=== PATIENT | female | born 1995 | race Caucasian/White ===

== ENCOUNTER 2016-12-05 04:23 | Emergency (ER) | payer OTHER ==
--- NOTE | 2016-12-05 06:44 | ED NURSING NOTES ---
Clinical Report - Nurses [facility] [address] [place] [address] 12/05/2016 4:25 Patient: OSITO DAY TRIAGE Triage time 0435. Acuity: LEVEL 3. Chief Complaint: ABDOMINAL PAIN, NAUSEA and VOMITING. FRANCOIS COMA SCORE: Francois Coma Scale: 15- eyes open spontaneously (4); best verbal response- oriented x 4 (5); best motor response- obeys commands (6). --04:39 Haley Hoff R.N. 04:35 12/05/16. BP: 124/69. HR: 113. RR: 20 (unlabored). O2 saturation: 97% on room air. Temp: 98.2 F (oral). Pain level now: 05/09. --04:39 Haley Hoff R.N. Weight: 77.1 kg stated. Height/Length: 63 inches Per Patient. BMI: 30.1. --04:34 Haley Hoff R.N. Medications None. --04:38 Haley Hoff R.N. Medication/allergy information source: the patient. --04:39 Haley Hoff R.N. Allergies No Known Drug Allergy. --04:38 Haley Hoff R.N. History Arrived by private vehicle. Historian: patient. Accompanied by family. Primary physician (none). ( pt c/o abdominal and vomiting since 9pm last night. pt states she's vomited 4 times.). The patient has had nausea, vomiting and abdominal pain. 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 PAST MEDICAL HX: Last normal menstrual period- Oct 22, 2016. Uses control pills. SOCIAL HX: Never smoker. No alcohol use or drug use. ABUSE ASSESSMENT: No report of abuse. FALL RISK ASSESSMENT: Fall risk assessment completed. No fall risk identified. NUTRITIONAL RISK ASSESSMENT: The nutritional risk assessment revealed no deficiencies. FUNCTIONAL ASSESSMENT: Functional assessment: no impairments noted. LEARNING NEEDS ASSESSMENT: The learning needs assessment revealed no barriers. SKIN INTEGRITY ASSESSMENT: Skin integrity risk assessment completed. No skin integrity risk identified. --04:39 Haley Hoff R.N. ADDITIONAL SURGERIES: Appendectomy. --04:38 Haley Hoff R.N. Interventions ID band on patient. To treatment room. --04:39 Haley Hoff R.N. PHYSICAL ASSESSMENT 04:45. Ambulatory to room. GENERAL / NEURO / PSYCH: Alert. Oriented X 4. Appears in pain. HEENT: Mucous membranes are dry. RESPIRATORY: Respirations not labored. Breath sounds within normal limits. CVS: Capillary refill less than 2 seconds. GI / : The patient has had nausea. SKIN: Skin is warm and dry. --05:55 Haley Hoff R.N. NURSING PROGRESS NOTES Patient gowned. Two patient identifiers checked. Call light placed in reach. Side rails up x 1. Bed placed in lowest position. Brakes of bed on. Patient ready for evaluation. --04:40 Haley Hoff R.N. 04:55 12/05/2016 Site #1 started via IV in the right antecubital space with an 20g angiocath, with aseptic technique and good blood return; one attempt. Blood drawn: rainbow set. Labeled in the presence of the patient and sent to the lab. Saline lock flushed with 10 mL saline. --04:55 Zonia Patton 05:05 12/05/2016 Started bag #1 1000 mL IV Fluids IV NS (Saline); at 999 mL/hr over 1 hour(s) via site #1 via IV pump. Allergies verified and confirmed 5 rights. IV patency established. IV site checked: no pain, redness, or swelling. IV flushed thoroughly pre- and post-medication administration. --05:10 Haley Hoff R.N. 05:05 12/05/2016 Zofran (Ondansetron HCl) IVP 4 mg given over 1 minute(s) via site #1. Allergies verified and confirmed 5 rights. IV patency established. IV site checked: no pain, redness, or swelling. IV flushed thoroughly pre- and post-medication administration. IVP given by RN. --05:11 Haley Hoff R.N. 05:30 pt resting, waiting for lab results. --06:15 Haley Hoff R.N. 06:06 12/05/2016 IV Fluids IV NS Discontinued: bag #1 completed. Total amount infused: 1000 ml mL. IV patency established. IV site checked: no pain, redness, or swelling. IV flushed thoroughly. --06:52 Haley Hoff R.N. DISPOSITION / DISCHARGE Departure time: 650. Condition at departure: improved. No learning barriers present. Discharge instructions provided and reviewed with the patient. Reviewed medication(s). Prescription(s) given to the patient (Shannonfran). Patient verbalized understanding. Written instructions provided in Norwegian. The patient was discharged by the physician. She was discharged home and accompanied by parent. She left the Emergency Department ambulatory and via private vehicle. Parent driving. Medication list reviewed and validated with the patient. --06:52 Haley Hoff R.N. 06:50 12/05/16. BP: 118/54. HR: 95. RR: 18 (unlabored). O2 saturation: 99% on room air. Temp: 98 F (oral). Pain level now: 03/09. --06:52 Haley Hoff R.N. 06:51 12/05/2016 Site #1 removed upon discharge. --06:53 Haley Hoff R.N. Locked/Released at 12/10/2016 5:02 by Haley Hoff R.N.
--- NOTE | 2016-12-05 06:44 | ED ORDER SUMMARY ---
..... Patient: OSITO DAY OrderSheet [facility] VisitID: [id number] [place] [address] 21y, F Registration Date/Time: 12/05/2016 ORDER SHEET Weight: 77.1 kg (stated) Allergies: No Known Drug Allergy GENERAL ORDERS: CBC w Diff Urgent (05:12/05/2016 Lorenzo GOODRICH) (Ack 5:01 LMuller) (6:49 HSoule) CMP Urgent (05:12/05/2016 Lorenzo GOODRICH) (Ack 5:01 LMuller) (6:49 HSoule) Lipase Urgent (:12/05/2016 Lorenzo GOODRICH) (Ack 5:01 LMuller) (6:49 HSoule) Amylase Urgent (05:12/05/2016 Lorenzo GOODRICH) (Ack 5:01 LMuller) (6:49 HSoule) Urine Urgent (05:12/05/2016 Lorenzo GOODRICH) (Ack 5:01 LMuller) (6:49 HSoule) Urine Drug Screen Urgent (05:12/05/2016 Lorenzo GOODRICH) (Ack 5:01 LMuller) (6:49 HSoule) UA-Culture if indicated Urgent (:12/05/2016 Lorenzo GOODRICH) (Ack 5:01 LMuller) (6:49 HSoule) MEDICATION ORDERS: IV FLUIDS: IV NS : initial bolus 1000 mL (1000 mL/hr), then 250 mL/hr for 4h (NOW); Routine (04:59 12/05/2016 Lorenzo GOODRICH) (Ack 5:00 HKone R.N.) (5:10 HKone R.N.) Zofran IV 4 mg (NOW) (04:59 12/05/2016 Lorenzo GOODRICH) (Ack 5:00 HKone R.N.) (5:11 HKone R.N.) ORDER SHEET NOTES: [Electronically signed by Larry Gomez MD (13:38 12/07/2016)] [Electronically signed by Haley Hoff R.N. (05:12/10/2016)] [Electronically locked/signed by Haley Hoff R.N. (05:12/10/2016)]
--- NOTE | 2016-12-05 06:44 | ED ORDER SUMMARY ---
..... Patient: OSITO DAY OrderSheet [facility] VisitID: [id number] [place] [address] 21y, F Registration Date/Time: 12/05/2016 ORDER SHEET Weight: 77.1 kg (stated) Allergies: No Known Drug Allergy GENERAL ORDERS: CBC w Diff Urgent (05:12/05/2016 Lorenzo GOODRICH) (Ack 5:01 LMuller) (6:49 HSoule) CMP Urgent (05:12/05/2016 Lorenzo GOODRICH) (Ack 5:01 LMuller) (6:49 HSoule) Lipase Urgent (:12/05/2016 Lorenzo GOODRICH) (Ack 5:01 LMuller) (6:49 HSoule) Amylase Urgent (05:12/05/2016 Lorenzo GOODRICH) (Ack 5:01 LMuller) (6:49 HSoule) Urine Urgent (05:12/05/2016 Lorenzo GOODRICH) (Ack 5:01 LMuller) (6:49 HSoule) Urine Drug Screen Urgent (05:12/05/2016 Lorenzo GOODRICH) (Ack 5:01 LMuller) (6:49 HSoule) UA-Culture if indicated Urgent (:12/05/2016 Lorenzo GOODRICH) (Ack 5:01 LMuller) (6:49 HSoule) MEDICATION ORDERS: IV FLUIDS: IV NS : initial bolus 1000 mL (1000 mL/hr), then 250 mL/hr for 4h (NOW); Routine (04:59 12/05/2016 Lorenzo GOODRICH) (Ack 5:00 HKone R.N.) (5:10 HKone R.N.) Zofran IV 4 mg (NOW) (04:59 12/05/2016 Lorenzo GOODRICH) (Ack 5:00 HKone R.N.) (5:11 HKone R.N.) ORDER SHEET NOTES: [Electronically signed by Larry Gomez MD (13:38 12/07/2016)] [Electronically signed by Haley Hoff R.N. (05:12/10/2016)] [Electronically locked/signed by Haley Hoff R.N. (05:12/10/2016)]
--- NOTE | 2016-12-05 06:44 | ED CLINICAL REPORT ---
Clinical Report - Physicians/Mid Levels [facility] [address] [place] [address] 12/05/2016 4:25 Patient: OSITO DAY Time Seen: 04:52 Dec 05 2016. Arrived- By private vehicle. Historian- patient. CPT: ER phys charges level 4 (#[id number]). HISTORY OF PRESENT ILLNESS Chief Complaint: ABDOMINAL PAIN and VOMITING and NAUSEA. At its maximum, severity described as moderate. When seen in the E.D., severity described as moderate. Modifying factors- worsened by movement. Relieved by rest. It is described as "pain" and cramping and it is described as located in the upper abdomen. 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 and is still present. The patient has had nausea and vomiting. Similar symptoms previously: None. Recent medical care: Not recently seen/assessed. REVIEW OF SYSTEMS No constipation, black stools, hematemesis, difficulty with urination or pain with urination. No urinary frequency, fever, sore throat, chest pain or difficulty breathing. No cough, joint pain, skin rash, chills or back pain. Denies current . All systems otherwise negative, except as recorded above. PAST HISTORY Appendectomy. Medications: None. Allergies: No Known Drug Allergy. SOCIAL HISTORY Never smoker. No alcohol use or drug use. ADDITIONAL NOTES The nursing notes have been reviewed. PHYSICAL EXAM Vital Signs: 12/05/2016 04:35 BP: 124/69. HR: 113. RR: 20. O2 saturation: 97%. Temp: 98.2 F. Pain level now: 6/10. Appearance: Alert. Eyes: Eyes normal inspection. ENT: Pharynx normal. Neck: Normal inspection. CVS: Normal heart rate and rhythm. Heart sounds normal. Respiratory: No respiratory distress. Breath sounds normal. Abdomen: Soft. Mild tenderness in the periumbilical area. Back: Normal inspection. Skin: No rash. Extremities: Extremities exhibit normal ROM. Neuro: Oriented X 3. LABS, X-RAYS, AND EKG Laboratory Tests: UA-Culture if indicated: (HELEN: 12/05/2016 04:55) ( [facility] 05[facility]43[facility] Final results Test Result Flag Units (Reference) URINE COLOR YELLOW URINE APPEARANCE CLEAR URINE GLUCOSE NEGATIVE (NEGATIVE) URINE BILIRUBIN NEGATIVE (NEGATIVE) URINE KETONE 2+ (NEGATIVE) URINE SPECIFIC GRAVITY 1.015 (1.010-1.030) URINE PH 7.0 (5.0-8.0) URINE PROTEIN 1+ (NEGATIVE) URINE UROBILINOGEN 0.2 EU/dL (0.2-1.0) URINE NITRITE NEGATIVE (NEGATIVE) URINE BLOOD NEGATIVE (NEGATIVE) URINE LEUK ESTERASE NEGATIVE (NEGATIVE) URINE RBC 1-3 rbc/hpf (0-1) URINE WBC 1-3 wbc/hpf (0-1) URINE EPITHELIAL CELLS 0-1 EPI/hpf (0-5) URINE BACTERIA NONE SEEN (NONE SEEN) URINE COMMENT CULT NOT INDICATED 2+ MUCUSURINE CULTURES ARE SET-UP BASED ON THE FOLLOWING CRITERIA:POSITIVE NITRITEPOSITIVE LEUKOCYTE ESTERASEGREATER THAN 10 WHITE BLOOD CELLSMODERATE (2+) OR GREATER BACTERIA Urine: (HELEN: 12/05/2016 04:55) ( [facility] 12/05/2016 05:23) Final results Test Result Flag Units (Reference) URINE NEGATIVE CBC w Diff: (HELEN: 12/05/2016 04:55) ( [facility] 05:21) Final results Test Result Flag Units (Reference) WHITE BLOOD COUNT 12.6 H K/uL (4.5-11.5) RED BLOOD COUNT 5.20 M/uL (4.00-5.20) HEMOGLOBIN 14.4 gm/dL (12.0-16.0) HEMATOCRIT 44.2 % (36.0-46.0) MEAN CELL VOLUME 85 fL (80-100) MEAN CORPUSCULAR HGB 28 pg (26-34) MEAN CORPUSCULAR HGB CONC 33 g/dL (31-37) RED CELL DISTRIBUTION WIDTH 13.4 % (11.6-14.8) PLATELET COUNT 289 K/uL (150-400) NEUTROPHIL % 89.9 H % (50-75) LYMPH % 6.1 L % (25-40) MONO % 3.5 % (3-14) EOSINOPHIL % 0.3 % (0-4) BASOPHIL % 0.2 % (0-2) CMP: (HELEN: 12/05/2016 04:55) ( [facility]cv[facility] 12/05/2016 05:35) Final results Test Result Flag Units (Reference) GLUCOSE 127 H mg/dL (70-110) BUN 12 mg/dL (7-18) CREATININE 0.8 mg/dL (0.6-1.3) Estimated GFR >60 mL/min Estimated GFR- >60 mL/min Note: Persistent reduction over 3 months in eGFR<60 mL/min/1.73 m2 defines CKD. Patients with eGFR values>=60 mL/min/1.73 m2 may also have CKD if evidence ofpersistent proteinuria. Additional information may be foundat www.kidney.org. SODIUM 141 mmol/L (136-145) POTASSIUM 3.6 mmol/L (3.5-5.1) CHLORIDE 106 mmol/L (98-107) CARBON DIOXIDE 24 mmol/L (21-32) CALCIUM 8.6 mg/dL (8.5-10.1) TOTAL PROTEIN 7.5 g/dL (6.4-8.2) ALBUMIN 3.7 g/dL (3.3-5.0) BILIRUBIN, TOTAL 0.5 mg/dL (0.0-1.0) ALKALINE PHOSPHATASE 92 U/L (46-116) AST (SGOT) 21 U/L (15-37) ALT (SGPT) 39 U/L (12-78) LIPASE 227 U/L (73-393) AMYLASE 103 U/L (25-115) . PROGRESS AND PROCEDURES Course of Care: IV NS Zofran 4 mg IV. Patient/family counseled. Disposition: Discharged. Condition: stable. CLINICAL IMPRESSION Acute noninfectious gastroenteritis with volume depletion. INSTRUCTIONS No strenuous activity. Do not work for two days until better. Take clear liquids only (frequent sips) for the next 24 hours until better. Advance diet as tolerated. Prescription Medications: Zofran (orally disintegrating tablets) 4 mg: take 1 orally every 4 hours as needed for nausea. Dispense ten (10). No refill. Follow-up: Follow up with your doctor tomorrow in one day if not better. Call for an appointment. Understanding of the discharge instructions verbalized by patient and parent. (Electronically signed by Larry Gomez MD 12/07/2016 13:38)
--- NOTE | 2016-12-05 06:44 | ED CLINICAL REPORT ---
Clinical Report - Physicians/Mid Levels [facility] [address] [place] [address] 12/05/2016 4:25 Patient: OSITO DAY Time Seen: 04:52 Dec 05 2016. Arrived- By private vehicle. Historian- patient. CPT: ER phys charges level 4 (#[id number]). HISTORY OF PRESENT ILLNESS Chief Complaint: ABDOMINAL PAIN and VOMITING and NAUSEA. At its maximum, severity described as moderate. When seen in the E.D., severity described as moderate. Modifying factors- worsened by movement. Relieved by rest. It is described as "pain" and cramping and it is described as located in the upper abdomen. 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 and is still present. The patient has had nausea and vomiting. Similar symptoms previously: None. Recent medical care: Not recently seen/assessed. REVIEW OF SYSTEMS No constipation, black stools, hematemesis, difficulty with urination or pain with urination. No urinary frequency, fever, sore throat, chest pain or difficulty breathing. No cough, joint pain, skin rash, chills or back pain. Denies current . All systems otherwise negative, except as recorded above. PAST HISTORY Appendectomy. Medications: None. Allergies: No Known Drug Allergy. SOCIAL HISTORY Never smoker. No alcohol use or drug use. ADDITIONAL NOTES The nursing notes have been reviewed. PHYSICAL EXAM Vital Signs: 12/05/2016 04:35 BP: 124/69. HR: 113. RR: 20. O2 saturation: 97%. Temp: 98.2 F. Pain level now: 6/10. Appearance: Alert. Eyes: Eyes normal inspection. ENT: Pharynx normal. Neck: Normal inspection. CVS: Normal heart rate and rhythm. Heart sounds normal. Respiratory: No respiratory distress. Breath sounds normal. Abdomen: Soft. Mild tenderness in the periumbilical area. Back: Normal inspection. Skin: No rash. Extremities: Extremities exhibit normal ROM. Neuro: Oriented X 3. LABS, X-RAYS, AND EKG Laboratory Tests: UA-Culture if indicated: (HELEN: 12/05/2016 04:55) ( [facility] 12/05/2016 05:43) Final results Test Result Flag Units (Reference) URINE COLOR YELLOW URINE APPEARANCE CLEAR URINE GLUCOSE NEGATIVE (NEGATIVE) URINE BILIRUBIN NEGATIVE (NEGATIVE) URINE KETONE 2+ (NEGATIVE) URINE SPECIFIC GRAVITY 1.015 (1.010-1.030) URINE PH 7.0 (5.0-8.0) URINE PROTEIN 1+ (NEGATIVE) URINE UROBILINOGEN 0.2 EU/dL (0.2-1.0) URINE NITRITE NEGATIVE (NEGATIVE) URINE BLOOD NEGATIVE (NEGATIVE) URINE LEUK ESTERASE NEGATIVE (NEGATIVE) URINE RBC 1-3 rbc/hpf (0-1) URINE WBC 1-3 wbc/hpf (0-1) URINE EPITHELIAL CELLS 0-1 EPI/hpf (0-5) URINE BACTERIA NONE SEEN (NONE SEEN) URINE COMMENT CULT NOT INDICATED 2+ MUCUSURINE CULTURES ARE SET-UP BASED ON THE FOLLOWING CRITERIA:POSITIVE NITRITEPOSITIVE LEUKOCYTE ESTERASEGREATER THAN 10 WHITE BLOOD CELLSMODERATE (2+) OR GREATER BACTERIA Urine: (HELEN: 12/05/2016 04:55) ( [facility] 12/05/2016 05:23) Final results Test Result Flag Units (Reference) URINE NEGATIVE CBC w Diff: (HELEN: 12/05/2016 04:55) ( [facility] 12/05/2016 05:21) Final results Test Result Flag Units (Reference) WHITE BLOOD COUNT 12.6 H K/uL (4.5-11.5) RED BLOOD COUNT 5.20 M/uL (4.00-5.20) HEMOGLOBIN 14.4 gm/dL (12.0-16.0) HEMATOCRIT 44.2 % (36.0-46.0) MEAN CELL VOLUME 85 fL (80-100) MEAN CORPUSCULAR HGB 28 pg (26-34) MEAN CORPUSCULAR HGB CONC 33 g/dL (31-37) RED CELL DISTRIBUTION WIDTH 13.4 % (11.6-14.8) PLATELET COUNT 289 K/uL (150-400) NEUTROPHIL % 89.9 H % (50-75) LYMPH % 6.1 L % (25-40) MONO % 3.5 % (3-14) EOSINOPHIL % 0.3 % (0-4) BASOPHIL % 0.2 % (0-2) CMP: (HELEN: 12/05/2016 04:55) ( MsgRcvd 12/05/2016 05:35) Final results Test Result Flag Units (Reference) GLUCOSE 127 H mg/dL (70-110) BUN 12 mg/dL (7-18) CREATININE 0.8 mg/dL (0.6-1.3) Estimated GFR >60 mL/min Estimated GFR- >60 mL/min Note: Persistent reduction over 3 months in eGFR<60 mL/min/1.73 m2 defines CKD. Patients with eGFR values>=60 mL/min/1.73 m2 may also have CKD if evidence ofpersistent proteinuria. Additional information may be foundat www.kidney.org. SODIUM 141 mmol/L (136-145) POTASSIUM 3.6 mmol/L (3.5-5.1) CHLORIDE 106 mmol/L (98-107) CARBON DIOXIDE 24 mmol/L (21-32) CALCIUM 8.6 mg/dL (8.5-10.1) TOTAL PROTEIN 7.5 g/dL (6.4-8.2) ALBUMIN 3.7 g/dL (3.3-5.0) BILIRUBIN, TOTAL 0.5 mg/dL (0.0-1.0) ALKALINE PHOSPHATASE 92 U/L (46-116) AST (SGOT) 21 U/L (15-37) ALT (SGPT) 39 U/L (12-78) LIPASE 227 U/L (73-393) AMYLASE 103 U/L (25-115) . PROGRESS AND PROCEDURES Course of Care: IV NS Zofran 4 mg IV. Patient/family counseled. Disposition: Discharged. Condition: stable. CLINICAL IMPRESSION Acute noninfectious gastroenteritis with volume depletion. INSTRUCTIONS No strenuous activity. Do not work for two days until better. Take clear liquids only (frequent sips) for the next 24 hours until better. Advance diet as tolerated. Prescription Medications: Zofran (orally disintegrating tablets) 4 mg: take 1 orally every 4 hours as needed for nausea. Dispense ten (10). No refill. Follow-up: Follow up with your doctor tomorrow in one day if not better. Call for an appointment. Understanding of the discharge instructions verbalized by patient and parent. (Electronically signed by Larry Gomez MD 12/07/2016 13:38)
--- NOTE | 2016-12-10 05:03 | ED DISCHARGE INSTRUCTIONS ---
Patient: OSITO DAY General Instructions [facility] VisitID: [id number] [place] [address] 21y, F Registration Date/Time: 12/05/2016 Acute noninfectious gastroenteritis with volume depletion. INSTRUCTIONS No strenuous activity. Do not work for two days until better. Take clear liquids only (frequent sips) for the next 24 hours until better. Advance diet as tolerated. Prescription Medications: Zofran (orally disintegrating tablets) 4 mg: take 1 orally every 4 hours as needed for nausea. Dispense ten (10). No refill. Follow-up: Follow up with your doctor tomorrow in one day if not better. Call for an appointment. Understanding of the discharge instructions verbalized by patient and parent. ADDITIONAL INFORMATION Food Poisoning Or Viral Gastroenteritis (6Yr-Adult) You have a stomach illness that is likely either food poisoning or viral gastroenteritis. Food poisoning occurs from1 to 24 hours after eating contaminated food and lasts up to 1 to 2 days. Viral gastroenteritis is commonly known as the stomach flu. It may last up to a week. Symptoms of both illnesses may include vomiting, diarrhea, fever, and stomach cramping. Antibiotics are not an effective treatment for either problem, but simple home treatment can give relief. Home Care: If symptoms are severe, rest at home for the next 24 hours. You may use acetaminophen (Tylenol) or ibuprofen (Motrin, Advil) to control fever, unless another medication was prescribed. [NOTE: If you have chronic liver or kidney disease or ever had a stomach ulcer or GI bleeding, talk with your doctor before using these medications. Do not give aspirin to anyone under 18 years of age who is ill with a fever.] Avoid tobacco and alcohol consumption. These may worsen your symptoms. If medicines for diarrhea or vomiting were prescribed, take these only as directed. Never take these without a healthcare providers approval. During the first12 to 24hours follow the diet below: BEVERAGES: Sport drinks like Gatorade, soft drinks without caffeine; michael tyshawn, mineral water (plain or flavored), decaffeinated tea and coffee. SOUPS: Clear broth, consomm and bouillon DESSERTS: Plain gelatin (Jell-O), popsicles and fruit juice bars. During the next 24 hours you may add the following to the above: Hot cereal, plain toast, bread, rolls, crackers Plain noodles, rice, mashed potatoes, chicken noodle or rice soup Unsweetened canned fruit (avoid pineapple), bananas Limit fat intake to less than 15 grams per day by avoiding margarine, butter, oils, mayonnaise, sauces, gravies, fried foods, peanut butter, meat, poultry, and fish. Limit fiber; avoid raw or cooked vegetables, fresh fruits (except bananas) and bran cereals. Limit caffeine and chocolate. No spices or seasonings except salt. Gradually resume a normal diet as you feel better and your symptoms lessen. Follow Up with your doctor as advised if you are not better in 2 days. If a stool (diarrhea) sample was taken, you may call in 2 days (or as directed) for the results. Get Prompt Medical Attention if any of the following occur: Increasing abdominal pain or constant lower right abdominal pain Continued vomiting (unable to keep liquids down) Frequent diarrhea (more than 5 times a day) Blood in vomit or stool (black or red color) Signs of dehydration: increased thirst, dark urine, reduced or no urine output, dry mouth and tongue, tireness or weakness, dizziness when standing, rapid breathinng New rash Fever of 100.4F (38C) oral or higher, not better with fever medication Clear Liquid Diet Clear liquids are any liquid that you can see through as well as those that are very easy to digest. This is used while the body is recovering from irritation or infection of the stomach or intestinal tract. It may also be used before special procedures or surgery. This diet is to be used no more than three days. You may include the following items. Adults Adults should drink a total of 23 quarts of liquid per day. It may be easier to drink small frequent servings rather than a few large ones. Liquids can include: Fruit juices.Strained orange juice or lemonade (no pulp), apple, grape and cranberry juice, clear fruit drinks, sports drinks Beverages.Sport drinks, sodas, mineral water (plain or flavored), tea, black coffee, liquid gelatin (add twice the recommended amount of water) Soups.Clear broth, consomm, bouillon Desserts.Plain gelatin, popsicles, fruit juice bars Children Over 2 years old The following liquids are acceptable for children over age 2: Fruit juices.Strained orange juice or lemonade (no pulp), apple, grape and cranberry juice, clear fruit drinks Beverages. Sports drinks, sodas, mineral water (plain or flavored), tea, liquid gelatin (add twice the recommended amount of water) Soups. Clear broth, consomm, bouillon Desserts. Plain gelatin, popsicles, fruit juice bars Children under 2 years old Oral rehydration fluids such are available at drug stores and most grocery stores without a prescription. Ondansetron Oral disintegrating tablet What is this medicine? ONDANSETRON (on TRACEY se vickie) is used to treat nausea and vomiting caused by chemotherapy. It is also used to prevent or treat nausea and vomiting after surgery. How should I use this medicine? These tablets are made to dissolve in the mouth. Do not try to push the tablet through the foil backing. With dry hands, peel away the foil backing and gently remove the tablet. Place the tablet in the mouth and allow it to dissolve, then swallow. While you may take these tablets with water, it is not necessary to do so. Talk to your painter barrel regarding the use of this medicine in children. Special care may be needed. What side effects may I notice from receiving this medicine? Side effects that you should report to your doctor or health health care liaison as soon as possible: allergic reactions like skin rash, itching or hives, swelling of the face, lips, or tongue breathing problems dizziness fast or irregular heartbeat feeling faint or lightheaded, falls fever and chills swelling of the hands and feet tightness in the chest Side effects that usually do not require medical attention (report to your doctor or health health care liaison if they continue or are bothersome): constipation or diarrhea headache What may interact with this medicine? Do not take this medicine with any of the following medications: -apomorphine -cisapride -dofetilide -dronedarone -pimozide -thioridazine -ziprasidone This medicine may also interact with the following medications: -carbamazepine -phenytoin -rifampicin -tramadol -other medicines that prolong the QT interval (cause an abnormal heart rhythm) What if I miss a dose? If you miss a dose, take it as soon as you can. If it is almost time for your next dose, take only that dose. Do not take double or extra doses. Where should I keep my medicine? Keep out of the reach of children. Store between 2 and 30 degrees C (36 and 86 degrees F). Throw away any unused medicine after the expiration date. What should I tell my health care provider before I take this medicine? They need to know if you have any of these conditions: heart disease history of irregular heartbeat liver disease low levels of magnesium or potassium in the blood an unusual or allergic reaction to ondansetron, granisetron, other medicines, foods, dyes, or preservatives or trying to get breast-feeding What should I watch for while using this medicine? Check with your doctor or health health care liaison as soon as you can if you have any sign of an allergic reaction. You have been given the following additional information: Food Poisoning Or Gastroenteritis (6Y-Adult) Diet, Clear Liquid Ondansetron Oral disintegrating tablet No strenuous activity. Do not work for two days until better. (Electronically signed by Larry Gomez MD 12/07/2016 13:38)
--- NOTE | 2016-12-10 05:03 | ED MAR SUMMARY ---
..... Medication Administration Record [facility] [address] [place] [address] Patient: OSITO DAY Visit ID: [id number] 21y, F Weight: 77.1 kg Height/Length: 63 in BMI: 30.1 ALLERGIES: No Known Drug Allergy Start 05:05 12/05/2016 Haley Hoff R.N., Stop 06:12/05/2016 Haley Hoff R.N. Medication Administered: IV NS (SALINE), Dose: IV Fluids over 1 hour(s), Rate: 999 mL/hr, Dispensed: 1000 mL bag, Site: #1 right AC. Medication Ordered: IV NS : initial bolus 1000 mL (1000 mL/hr), then 250 mL/hr for 4h (NOW); Routine. Given 05:05 12/05/2016 Haley Hoff R.N. Medication Administered: ZOFRAN [IVP] (ONDANSETRON HCL), Dose: 4 mg IVP over 1 minute(s), Site: #1 right AC. Medication Ordered: Zofran IV 4 mg (NOW).
--- NOTE | 2016-12-10 05:03 | ED MED RECONCILIATION SUMMARY ---
Patient: OSITO DAY Medication Reconciliation Report [facility] VisitID: [id number] [place] [address] 21y, F Registration Date/Time: 12/05/2016 Weight: 77.1 kg Height/Length: 63 in. BMI: 30.1 ALLERGIES: No Known Drug Allergy The patient's Home Medications are listed below: NONE. The source(s) of the original Home Medication information: patient The following Medications were given to the patient in the Emergency Department: IV NS IV Fluids bolus 0, then 999 mL/hr, administered: 12/05/2016 5:05:00 AM Zofran [IVP] IVP 4 mg, administered: 12/05/2016 5:05:00 AM The following Medications were prescribed to the patient: Zofran (orally disintegrating tablets) 4 mg: take 1 orally every 4 hours as needed for nausea. Dispense ten (10). No refill. -- Larry Gomez MD
--- NOTE | 2016-12-10 05:03 | ED MED RECONCILIATION SUMMARY ---
Patient: OSITO DAY Medication Reconciliation Report [facility] VisitID: [id number] [place] [address] 21y, F Registration Date/Time: 12/05/2016 Weight: 77.1 kg Height/Length: 63 in. BMI: 30.1 ALLERGIES: No Known Drug Allergy The patient's Home Medications are listed below: NONE. The source(s) of the original Home Medication information: patient The following Medications were given to the patient in the Emergency Department: IV NS IV Fluids bolus 0, then 999 mL/hr, administered: 12/05/2016 5:05:00 AM Zofran [IVP] IVP 4 mg, administered: 12/05/2016 5:05:00 AM The following Medications were prescribed to the patient: Zofran (orally disintegrating tablets) 4 mg: take 1 orally every 4 hours as needed for nausea. Dispense ten (10). No refill. -- Larry Gomez MD
--- NOTE | 2016-12-10 05:03 | ED MAR SUMMARY ---
..... Medication Administration Record [facility] [address] [place] [address] Patient: OSITO DAY Visit ID: [id number] 21y, F Weight: 77.1 kg Height/Length: 63 in BMI: 30.1 ALLERGIES: No Known Drug Allergy Start 05:05 12/05/2016 Haley Hoff R.N., Stop 06:12/05/2016 Haley Hoff R.N. Medication Administered: IV NS (SALINE), Dose: IV Fluids over 1 hour(s), Rate: 999 mL/hr, Dispensed: 1000 mL bag, Site: #1 right AC. Medication Ordered: IV NS : initial bolus 1000 mL (1000 mL/hr), then 250 mL/hr for 4h (NOW); Routine. Given 05:05 12/05/2016 Haley Hoff R.N. Medication Administered: ZOFRAN [IVP] (ONDANSETRON HCL), Dose: 4 mg IVP over 1 minute(s), Site: #1 right AC. Medication Ordered: Zofran IV 4 mg (NOW).
== END 2016-12-05 06:51 | disposition home or self-care (01) ==
LOC: ED SRH 04:23
DX: K52.9 Noninfective gastroenteritis and colitis, unspecified (principal); E86.9 Volume depletion, unspecified; R11.2 Nausea with vomiting, unspecified; R82.79 Other abnormal findings on microbiological examination of urine
CPT/HCPCS: 90004; 90100; 92235; 92530; 92760; 92761; 92762; 92763; 92764; 92765; 92766; 92767; 93070; 95059